=== PATIENT | female | born 1975 | race Caucasian/White ===

== ENCOUNTER → 2019-04-07 | Outpatient (REF) | payer OTHER ==
[2019-04-07 18:13] LABS: APPEARANCE, URINE CLEAR (CLEAR); BACTERIA, URINE AUTO 2+ (NEGATIVE); BILIRUBIN, URINE AUTO NEGATIVE (NEGATIVE); BLOOD, URINE BLOOD 1+ (NEGATIVE); COLOR, URINE STRAW (YELLOW); GLUCOSE, URINE (UA) AUTO NEGATIVE (NEGATIVE); KETONE, URINE AUTO NEGATIVE (NEGATIVE); LEUKOCYTE ESTERASE, URINE AUTO 1+ (NEGATIVE); NITRITE, URINE AUTO NEGATIVE (NEGATIVE); PROTEIN, URINE AUTO NEGATIVE (NEGATIVE); RBC, URINE AUTO 0 /HPF (0-3); SPECIFIC GRAVITY URINE AUTO 1.002 (1.002-1.035); SQUAMOUS EPITHELIAL CELL UR AU 0 /HPF (0-6); UROBILINOGEN, URINE AUTO 0.2 mg/dL (0.0-2.0); WBC, URINE AUTO 18 /HPF (0-3)
[2019-04-07 18:24] LABS: BASO # 0.1 10^3/uL (0.0-0.2); BASO % 0.7 % (0.0-1.0); EOS # 0.2 10^3/uL (0.0-0.50); EOS % 2.4 % (0.0-3.0); HEMATOCRIT 41.5 % (36.0-47.0); HEMOGLOBIN 13.9 g/dl (12.0-15.5); LYMPH # 1.2 10^3/uL (1.5-4.5); LYMPH % 16.2 % (24.0-44.0); MEAN CORPUSCULAR HEMOGLOBIN 34.3 pg (27.0-33.0); MEAN CORPUSCULAR HGB CONC 33.5 g/dl (32.0-36.5); MEAN CORPUSCULAR VOLUME 102.5 fl (80.0-96.0); MONO # 0.7 10^3/uL (0.0-0.8); NEUTROPHILS # 5.2 10^3/uL (1.8-7.7); NEUTROPHILS % 71.4 % (36.0-66.0); PLATELET COUNT, AUTOMATED 226 10^3/uL (150-450); RED BLOOD COUNT 4.05 10^6/uL (4.00-5.40); WHITE BLOOD COUNT 7.2 10^3/uL (4.0-10.0)
[2019-04-07 18:43] LABS: ALBUMIN 4.2 GM/DL (3.2-5.2); ALT/SGPT 73 U/L (12-78); BILIRUBIN,TOTAL 0.3 MG/DL (0.2-1.0); BLOOD UREA NITROGEN 8 MG/DL (7-18); CARBON DIOXIDE LEVEL 26 MEQ/L (21-32); CHLORIDE LEVEL 101 MEQ/L (98-107); CHOLESTEROL LEVEL 328 MG/DL (<200); CREATININE FOR GFR 0.63 MG/DL (0.55-1.30); FREE T4 0.61 NG/DL (0.76-1.46); GLOMERULAR FILTRATION RATE > 60.0 (>58); GLUCOSE, FASTING 87 MG/DL (70-100); LDL CHOLESTEROL 146 MG/DL (<100); NON-HDL-C 164 MG/DL; POTASSIUM SERUM 4.1 MEQ/L (3.5-5.1); SODIUM LEVEL 135 MEQ/L (136-145); TOTAL PROTEIN 8.1 GM/DL (6.4-8.2); TRIGLYCERIDES LEVEL 89 MG/DL (<150)
[2019-04-07 19:13] LABS: HDL CHOLESTEROL 164 MG/DL (>40)
== END ==
LOC: M LAB REF 16:54
PROVIDERS: ATTEND Nurse Practitioner Family
DX: Z13.9 Encounter for screening, unspecified (principal)

== ENCOUNTER → 2019-04-13 | Outpatient (CLI) | payer OTHER ==
--- NOTE | 2019-04-13 16:08 | REP ---
Head CT without contrast: History: Throbbing headache. Blurred vision. Comparison study: November 11, [address]. CT findings: Bone window settings demonstrate an intact bony calvarium. There is no evidence of skull fracture or incidental bony calvarial lesion. The visualized paranasal sinuses appear clear. No intraorbital abnormality is seen. On soft tissue window setting images; the lateral, third, and fourth ventricles are normal in size and position. Mendoza-white differentiation pattern is normal above and below the tentorium. There are is no evidence of intracranial hemorrhage. No mass, edema, infarction, or midline shift is seen. No extra-axial fluid collection is appreciated. Impression: Negative noncontrast head CT. Electronically Signed by Moe Rangel MD 04/13/2019 04:00 P
== END ==
LOC: M RAD 15:38
PROVIDERS: ATTEND Nurse Practitioner Family
DX: R51 Headache (principal)

== ENCOUNTER → 2019-06-05 | Outpatient (CLI) | payer OTHER ==
--- NOTE | 2019-06-05 16:24 | REP ---
MRI RIGHT KNEE: TECHNIQUE: Axial proton density fat saturation, sagittal proton density T2 STIR, water excitation, coronal proton density, proton density fat saturation. There is a lobulated cystic structure which is oval in shape along the anterior margin of the anterior horn of the medial meniscus. Its location suggests that it is a meniscal cyst. I do not see an adjacent tear of the anterior horn of the medial meniscus but the presence of a cyst suggests an occult tear. Otherwise no meniscal tear is seen. The cruciate and collateral ligaments are intact. There is mild nonspecific edema anterior to the patellar tendon. 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 Focal subchondral cystic change is seen in the central medial tibial plateau posteriorly. There is a small joint effusion. No popliteal cyst is seen. There is minimal subchondral marrow edema peripherally in the medial femoral condyle. IMPRESSION :Lobulated oval cystic structure along the anterior margin of the anterior horn of the medial meniscus has an appearance and location most consistent with a meniscal cyst, suggesting an occult tear of the anterior horn of the medial meniscus, not visualized on imaging. Otherwise no meniscal tear is seen and the cruciate and collateral ligaments are intact. There is mild nonspecific edema anterior to the patellar tendon. 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 Focal subchondral cystic change in the posterior central medial tibial plateau. Small joint effusion. There is minimal subchondral marrow edema peripherally in the medial femoral condyle. Electronically Signed by Ross Mendoza MD 06/08/2019 11:19 A
== END ==
LOC: M RAD 06-04 06:58 → M PLARAD 08:56
PROVIDERS: ATTEND Orthopaedic Surgery Sports Medicine
DX: M25.561 Pain in right knee (principal); M25.461 Effusion, right knee

== ENCOUNTER → 2019-08-19 | Outpatient (CLI) | payer OTHER ==
--- NOTE | 2019-08-19 11:16 | REP ---
Right lower extremity Duplex Doppler venous ultrasound: Real time compression and duplex Doppler interrogation of the right lower extremity deep venous system is performed. The right common femoral, superficial femoral and popliteal veins are fully compressible with transducer pressure and demonstrate normal spontaneous and phasic flow, without evidence of deep venous thrombosis. Impression: No evidence of deep venous thrombosis of the right lower extremity femoral popliteal venous system. Electronically Signed by Ross Mendoza MD 08/19/2019 11:07 A
== END ==
LOC: M RAD 10:23
PROVIDERS: ATTEND Orthopaedic Surgery Sports Medicine
DX: Z47.89 Encounter for other orthopedic aftercare (principal)

== ENCOUNTER → 2019-12-30 | Outpatient (REF) | payer OTHER | LOC: M LAB REF 15:57 | PROVIDERS: ATTEND Ophthalmology | DX: H02.9 Unspecified disorder of eyelid (principal) ==

== ENCOUNTER → 2020-01-16 | Outpatient (CLI) | payer OTHER ==
--- NOTE | 2020-01-16 09:14 | REP ---
Clinical: Asthma with acute exacerbation . Comparison: 11/11/2010 . Technique: PA and lateral. Findings: The mediastinum and cardiac silhouette are normal. The lung sprague are clear and without acute consolidation, effusion, or pneumothorax. Old healed left rib fractures noted. Impression: 1. No acute cardiopulmonary process. Electronically Signed by Jeffrey Larsen MD 01/16/2020 09:04 A
== END ==
LOC: M ADAMS 08:43
PROVIDERS: ATTEND Physician Assistant
DX: J45.901 Unspecified asthma with (acute) exacerbation (principal); R05 Cough

== ENCOUNTER → 2020-09-05 | Outpatient (REF) | payer OTHER, MEDICAID ==
[2020-09-05 13:32] LABS: BASO % 0.5 % (0.0-1.0); EOS # 0.3 10^3/uL (0.0-0.5); EOS % 3.3 % (0.0-3.0); HEMATOCRIT 39.8 % (36.0-47.0); LYMPH # 1.5 10^3/uL (1.5-5.0); LYMPH % 17.5 % (24.0-44.0); MEAN CORPUSCULAR HEMOGLOBIN 33.9 pg (27.0-33.0); MEAN CORPUSCULAR HGB CONC 32.7 g/dl (32.0-36.5); MEAN CORPUSCULAR VOLUME 103.6 fl (80.0-96.0); MONO # 0.7 10^3/uL (0.0-0.8); MONO % 8.3 % (0.0-5.0); NEUTROPHILS # 5.9 10^3/uL (1.5-8.5); PLATELET COUNT, AUTOMATED 314 10^3/uL (150-450); RED BLOOD COUNT 3.84 10^6/uL (4.00-5.40); WHITE BLOOD COUNT 8.4 10^3/uL (4.0-10.0)
[2020-09-05 13:52] LABS: ALBUMIN 3.8 GM/DL (3.2-5.2); ALT/SGPT 33 U/L (12-78); BILIRUBIN,TOTAL 0.5 MG/DL (0.2-1.0); BLOOD UREA NITROGEN 12 MG/DL (7-18); CALCIUM LEVEL 10.1 MG/DL (8.5-10.1); CARBON DIOXIDE LEVEL 29 MEQ/L (21-32); CHLORIDE LEVEL 101 MEQ/L (98-107); CHOLESTEROL LEVEL 313 MG/DL (<200); CHOLESTEROL RISK RATIO 2.445 (<5); CREATININE FOR GFR 0.74 MG/DL (0.55-1.30); FREE T4 0.77 NG/DL (0.76-1.46); GLOMERULAR FILTRATION RATE > 60.0 (>58); GLUCOSE, FASTING 115 MG/DL (70-100); HDL CHOLESTEROL 128 MG/DL (>40); LDL CHOLESTEROL 167 MG/DL (<100); NON-HDL-C 185 MG/DL; POTASSIUM SERUM 4.1 MEQ/L (3.5-5.1); SODIUM LEVEL 136 MEQ/L (136-145); TOTAL 25(OH) VITAMIN D 16.7 NG/ML (30.0-100.0); TOTAL PROTEIN 8.3 GM/DL (6.4-8.2); TRIGLYCERIDES LEVEL 88 MG/DL (<150)
[2020-09-05 14:28] LABS: APPEARANCE, URINE TURBID (CLEAR); BACTERIA, URINE AUTO 3+ (NEGATIVE); BILIRUBIN, URINE AUTO NEGATIVE (NEGATIVE); BLOOD, URINE BLOOD 1+ (NEGATIVE); COLOR, URINE YELLOW (YELLOW); GLUCOSE, URINE (UA) AUTO NEGATIVE (NEGATIVE); KETONE, URINE AUTO NEGATIVE (NEGATIVE); LEUKOCYTE ESTERASE, URINE AUTO 3+ (NEGATIVE); NITRITE, URINE AUTO POSITIVE (NEGATIVE); PROTEIN, URINE AUTO 2+ mg/dL (NEGATIVE); RBC, URINE AUTO 27 /HPF (0-3); SPECIFIC GRAVITY URINE AUTO 1.013 (1.002-1.035); SQUAMOUS EPITHELIAL CELL UR AU 1 /HPF (0-6); UROBILINOGEN, URINE AUTO 0.2 mg/dL (0.0-2.0); WBC, URINE AUTO TNTC /HPF (0-3)
== END ==
LOC: M LAB REF 12:20
PROVIDERS: ATTEND Nurse Practitioner Family
DX: G47.00 Insomnia, unspecified (principal); F41.8 Other specified anxiety disorders; R74.8 Abnormal levels of other serum enzymes; I10 Essential (primary) hypertension; F10.20 Alcohol dependence, uncomplicated; Z13.9 Encounter for screening, unspecified

== ENCOUNTER 2021-08-04 09:12 | Emergency (ER) | payer MEDICAID, OTHER ==
[~2021-08-04] VITALS: Ht 152.4 cm; Wt 56.4 kg
[2021-08-04] MEDS ORDERED: HYDR50TA70 (09:24)
[2021-08-04] MEDS ORDERED: ALBU8.5H (09:24)
[2021-08-04] MEDS ORDERED: METO1TAB32 (09:24)
[2021-08-04] MEDS ORDERED: AMLO1TAB24 (09:24)
[2021-08-04] MEDS ORDERED: CEPH500C PO (10:44)
[2021-08-04 10:57] VITALS: BP 147/72
== END 2021-08-04 10:59 | disposition home or self-care (01) ==
LOC: M ED 09:12
DX: L03.113 Cellulitis of right upper limb (principal); S61.411A Laceration without foreign body of right hand, initial encounter; Y28.9XXA Contact with unspecified sharp object, undetermined intent, initial encounter; Y92.89 Other specified places as the place of occurrence of the external cause; Y93.G1 Activity, food preparation and clean up; Y99.8 Other external cause status; Z88.1 Allergy status to other antibiotic agents; Z88.2 Allergy status to sulfonamides

== ENCOUNTER → 2021-10-22 | Outpatient (CLI) | payer OTHER ==
[~2021-10-22] MED LIST: ALBU8.5H; AMLO1TAB24; CEPH500C PO; HYDR50TA70; METO1TAB32
--- NOTE | 2021-10-22 12:12 | REP ---
INDICATION: PIN IN RIGHT HAND COMPARISON: None. TECHNIQUE: AP, lateral, bilateral oblique views right hand. FINDINGS: The osseous structures and joint spaces are intact and normal. There is no evidence for acute fracture or dislocation. Surrounding soft tissues are unremarkable. No subcutaneous emphysema or radiodense foreign body. IMPRESSION: . No acute fracture or dislocation. <Electronically signed by Jeffrey Larsen > 10/22/21 [id number]
== END ==
LOC: M RAD 11:39
PROVIDERS: ATTEND Nurse Practitioner Family
DX: M79.641 Pain in right hand (principal)

== ENCOUNTER → 2022-02-23 | Outpatient (CLI) | payer OTHER | LOC: M WHC 08:39 | PROVIDERS: ATTEND Physician Assistant | DX: Z12.31 Encounter for screening mammogram for malignant neoplasm of breast (principal); R94.5 Abnormal results of liver function studies; K76.0 Fatty (change of) liver, not elsewhere classified ==

== ENCOUNTER → 2022-10-30 | Outpatient (REF) | payer OTHER ==
[2022-10-30 17:17] LABS: ALBUMIN 3.8 G/DL (3.2-5.2); ALKALINE PHOSPHATASE 100 U/L (46-116); ALT/SGPT 39 U/L (7.0-40); AST/SGOT 107 U/L (<34); BILIRUBIN,TOTAL 0.3 MG/DL (0.3-1.2); BLOOD UREA NITROGEN 8 MG/DL (9-23); CALCIUM LEVEL 10.1 MG/DL (8.5-10.1); CARBON DIOXIDE LEVEL 28 MMOL/L (20-31); CHLORIDE LEVEL 99 MMOL/L (98-107); CHOLESTEROL LEVEL 288 MG/DL (<200); CHOLESTEROL RISK RATIO 3.28 (<5); CREATININE FOR GFR 0.64 MG/DL (0.55-1.30); GLOMERULAR FILTRATION RATE > 60.0 (>58); GLUCOSE, FASTING 92 MG/DL (60-100); HDL CHOLESTEROL 87.8 MG/DL (>40); LDL CHOLESTEROL 144.8 MG/DL (<100); NON-HDL-C 200 MG/DL; POTASSIUM SERUM 4.8 MMOL/L (3.5-5.1); SODIUM LEVEL 137 MMOL/L (136-145); TOTAL PROTEIN 8.2 G/DL (5.7-8.2); TRIGLYCERIDES LEVEL 277 MG/DL (<150)
[2022-10-30 17:19] LABS: TOTAL 25(OH) VITAMIN D 24.5 NG/ML (20.0-100.0)
== END ==
LOC: M LAB REF 16:10
PROVIDERS: ATTEND Physician Assistant
DX: E55.9 Vitamin D deficiency, unspecified (principal); R94.5 Abnormal results of liver function studies; K70.0 Alcoholic fatty liver

== ENCOUNTER → 2023-02-11 | Outpatient (REF) | payer OTHER ==
[2023-02-11 18:32] LABS: HEMATOCRIT 34.1 % (36.0-47.0); HEMOGLOBIN 10.7 g/dl (12.0-15.5); MEAN CORPUSCULAR HEMOGLOBIN 32.4 pg (27.0-33.0); MEAN CORPUSCULAR HGB CONC 31.4 g/dl (32.0-36.5); MEAN CORPUSCULAR VOLUME 103.3 fl (80.0-96.0); PLATELET COUNT, AUTOMATED 528 10^3/uL (150-450); WHITE BLOOD COUNT 11.3 10^3/uL (4.0-10.0)
[2023-02-11 19:04] LABS: FREE T4 0.88 NG/DL (0.89-1.76)
[2023-02-11 19:05] LABS: THYROID STIMULATING HORMONE 2.156 uIU/ML (0.55-4.78)
[2023-02-11 19:24] LABS: ALBUMIN 2.7 G/DL (3.2-5.2); ALKALINE PHOSPHATASE 221 U/L (46-116); ALT/SGPT 28 U/L (7.0-40); AST/SGOT 592 U/L (<34); BILIRUBIN,TOTAL 0.4 MG/DL (0.3-1.2); BLOOD UREA NITROGEN 9 MG/DL (9-23); CALCIUM LEVEL 8.7 MG/DL (8.5-10.1); CARBON DIOXIDE LEVEL 26 MMOL/L (20-31); CHLORIDE LEVEL 100 MMOL/L (98-107); CHOLESTEROL LEVEL 118 MG/DL (<200); CHOLESTEROL RISK RATIO 3.55 (<5); GLOMERULAR FILTRATION RATE > 60.0 (>58); GLUCOSE, FASTING 85 MG/DL (60-100); HDL CHOLESTEROL 33.2 MG/DL (>40); LDL CHOLESTEROL 47.6 MG/DL (<100); NON-HDL-C 84.8 MG/DL; POTASSIUM SERUM 4.6 MMOL/L (3.5-5.1); SODIUM LEVEL 132 MMOL/L (136-145); TOTAL PROTEIN 7.4 G/DL (5.7-8.2); TRIGLYCERIDES LEVEL 186 MG/DL (<150)
== END ==
LOC: M LAB REF 16:15
PROVIDERS: ATTEND Physician Assistant
DX: E78.5 Hyperlipidemia, unspecified (principal); K70.0 Alcoholic fatty liver; I10 Essential (primary) hypertension; F10.20 Alcohol dependence, uncomplicated